=== PATIENT | female | born 1980 | race Hispanic/Latino ===

== ENCOUNTER 2019-12-23 07:23 | Day surgery (SDC) | payer OTHER ==
[2019-12-19 09:54] LABS: BASOPHILS % (AUTO) 0.7 % (0.0-5.0); EOSINOPHILS % (AUTO) 1.3 % (0.0-8.0); HEMATOCRIT 40.9 % (36-48); LYMPHOCYTES % (AUTO) 29.4 % (21.0-51.0); MEAN CORPUSCULAR HEMOGLOBIN 31.2 pg (27.0-33.0); MEAN CORPUSCULAR HGB CONC 33.7 g/dL (32.0-36.0); MEAN CORPUSCULAR VOLUME 92.5 fL (79-99); MONOCYTES % (AUTO) 8.6 % (3.0-13.0); NEUTROPHILS % (AUTO) 59.4 % (40.0-77.0); PLATELET COUNT (AUTO) 240 K/uL (130-400); RED BLOOD CELL COUNT(AUTO) 4.42 MIL/uL (4.00-5.50); RED CELL DISTRIBUTION WIDTH 12.7 % (11.0-15.5); WHITE BLOOD COUNT (AUTO) 5.5 K/uL (4.8-10.8)
[2019-12-19 10:20] LABS: INR 1.28 (0.85-1.15); PARTIAL THROMBOPLASTIN TIME 36.1 SEC (26.3-35.5); PROTHROMBIN TIME 13.7 SEC (9.6-11.6)
[2019-12-19 10:26] LABS: POTASSIUM 4.2 mmol/L (3.5-5.1)
[2019-12-22 09:25] VITALS: BP 126/71
[~2019-12-23] VITALS: Ht 160 cm; Wt 104.0 kg
[2019-12-23] VITALS (9 sets, daily range): BP systolic 102–122; BP diastolic 56–73
[~2019-12-23 07:23] MED LIST: DRON400T2 PO; LO ESTRIN PO; LORA0.5T83 PO; METO100T14 PO; RIVA20TA PO; VERA240T14 PO
[2019-12-23] MEDS ORDERED: SODIUM CHLORIDE 0.9% 1000ML 1,000 ML IV ONE (07:41)
[2019-12-23] MEDS ORDERED: SUCCINYLCHOLINE 200MG/10ML SYR ONE (09:15)
[2019-12-23] MEDS ORDERED: PROPOFOL 10 MG/ML 20ML VIAL IV ONE (09:15)
--- NOTE | 2019-12-23 10:00 | NUR ---
cardioversion cardioversions with anesthesia done by dr. correa /farhat vazquez presales consultant. internal shock delivered at 36 joules at 0922- pt velvet well with no adverse reactions. pt converted ,vs stable.
--- NOTE | 2019-12-23 10:10 | NUR ---
dc pt dc home via [place],no distress noted. pt denied any pain or discomforts. pt accompanied by her mother .
== END 2019-12-23 10:10 | disposition home or self-care (01) ==
LOC: DAH 07:23
PROVIDERS: ATTEND Internal Medicine Cardiovascular Disease
DX: I48.4 Atypical atrial flutter (principal); Z11.59 Encounter for screening for other viral diseases; E66.9 Obesity, unspecified; Z79.899 Other long term (current) drug therapy; Z90.10 Acquired absence of unspecified breast and nipple; Z95.810 Presence of automatic (implantable) cardiac defibrillator; I44.7 Left bundle-branch block, unspecified; Z79.01 Long term (current) use of anticoagulants
CPT/HCPCS: 36415; 80048; 84703; 85025; 85610; 85730; 92960; 93005; A4215; A4216; A4221; A4222; A4223 ×3; A4606; A4663; J0330; J2704; J7030 ×2; U0003; 99156

== ENCOUNTER 2020-08-23 06:04 | Day surgery (SDC) | payer OTHER ==
[2020-08-19 13:17] LABS: BASOPHILS % (AUTO) 0.7 % (0.0-5.0); EOSINOPHILS % (AUTO) 0.7 % (0.0-8.0); HEMATOCRIT 41.1 % (36-48); LYMPHOCYTES % (AUTO) 28.8 % (21.0-51.0); MEAN CORPUSCULAR HEMOGLOBIN 31.6 pg (27.0-33.0); MEAN CORPUSCULAR HGB CONC 33.3 g/dL (32.0-36.0); MEAN CORPUSCULAR VOLUME 94.7 fL (79-99); MONOCYTES % (AUTO) 9.4 % (3.0-13.0); PLATELET COUNT (AUTO) 220 K/uL (130-400); RED BLOOD CELL COUNT(AUTO) 4.34 MIL/uL (4.00-5.50); RED CELL DISTRIBUTION WIDTH 11.8 % (11.0-15.5); WHITE BLOOD COUNT (AUTO) 6.7 K/uL (4.8-10.8)
[2020-08-19 13:25] LABS: CREATININE 1.1 mg/dL (0.5-1.5); POTASSIUM 4.2 mmol/L (3.5-5.1)
[2020-08-19 13:27] LABS: INR 1.32 (0.85-1.15)
[2020-08-19 13:29] LABS: PARTIAL THROMBOPLASTIN TIME 35.6 SEC (26.3-35.5)
[2020-08-20 12:50] VITALS: BP 127/72
[2020-08-23] VITALS (9 sets, daily range): BP systolic 102–107; BP diastolic 50–67
[~2020-08-23] VITALS: Ht 157.5 cm; Wt 105.2 kg
[~2020-08-23 06:04] MED LIST changes: +CEFAZOLIN SODIUM 1 GM VIAL IVP SCH; -DRON400T2 PO; +DRON400T7 PO; -LORA0.5T83 PO; -VERA240T14 PO; +VERA240T95 PO
[2020-08-23] MEDS ORDERED: 0.9%NACL 1000ML 1,000 ML IV ONE (06:44)
[2020-08-23] MEDS ORDERED: CEFAZOLIN SODIUM 1 GM VIAL ONE (07:42)
[2020-08-23] MEDS ORDERED: LIDOCAINE HCL 1% MDV 50ML VIAL ONE (07:42)
[2020-08-23] MEDS ORDERED: BUPIVACAINE/PF 0.25% 30ML VIAL IJ ONE (07:42)
[2020-08-23] MEDS ORDERED: MIDAZOLAM HCL 1 MG/ML 2ML VIAL ONE ×2 (07:56→10:18)
[2020-08-23] MEDS ORDERED: FENTANYL CITRATE PF 50 MCG/1 ML 2ML VIAL ONE (07:57)
[2020-08-23] MEDS ORDERED: PROPOFOL 10 MG/ML 20ML VIAL IV ONE (07:57)
[2020-08-23] MEDS ORDERED: ROCURONIUM 10MG/1ML SYR 10 MG/ML ML ONE (07:59)
[2020-08-23] MEDS ORDERED: SUCCINYLCHOLINE 200MG/10ML SYR ONE (07:59)
[2020-08-23] MEDS ORDERED: PHENYLEPHRINE HCL 10 MG/ML 1ML VIAL IV ONE (07:59)
[2020-08-23] MEDS ORDERED: ACETAMINOPHEN WITH CODEINE 1 TAB TAB PO PRN (09:45)
[2020-08-23] MEDS ORDERED: ACET1TAB25 PO (09:49)
== END 2020-08-23 13:10 | disposition home or self-care (01) ==
LOC: DAH 06:04
PROVIDERS: ATTEND Internal Medicine Cardiovascular Disease
DX: Z45.02 Encounter for adjustment and management of automatic implantable cardiac defibrillator (principal); Z20.822 Contact with and (suspected) exposure to COVID-19; I42.2 Other hypertrophic cardiomyopathy; I48.91 Unspecified atrial fibrillation; I25.10 Atherosclerotic heart disease of native coronary artery without angina pectoris; Z98.890 Other specified postprocedural states; Z79.01 Long term (current) use of anticoagulants; Z79.899 Other long term (current) drug therapy
CPT/HCPCS: 33263; 36415; 80048; 81025; 85025; 85610; 85730; 93005; A4215; A4216; A4221; A4222; A4223 ×3; A4606; A4663; C1721; C9803; J0330; J0690; J2250 ×2; J2370; J2704; J3010; J3490 ×2; J7030; U0003; C1785

== ENCOUNTER → 2022-01-26 | Outpatient (CLI) | payer BC ==
[~2022-01-26] MED LIST changes: +ACET-2079 PO; -CEFAZOLIN SODIUM 1 GM VIAL IVP SCH
== END | disposition home or self-care (01) ==
LOC: SHCH 14:09
PROVIDERS: ATTEND Internal Medicine Cardiovascular Disease
DX: R60.9 Edema, unspecified (principal)
CPT/HCPCS: 93970

== ENCOUNTER 2023-05-01 05:58 | Observation (INO) | payer OTHER ==
[2023-04-30 09:24] VITALS: BP 126/77; PULSE 78; RESP 16
[2023-04-30 09:30] LABS: BASOPHILS # (AUTO) 0.05 K/uL (0.00-0.20); BASOPHILS % (AUTO) 0.9 % (0.0-5.0); EOSINOPHILS # (AUTO) 0.07 K/uL (0.00-0.70); EOSINOPHILS % (AUTO) 1.3 % (0.0-8.0); HEMATOCRIT 44.1 % (36-48); IMMATURE GRANULOCYTE ABSOLUTE 0.03 K/uL (0-1); LYMPHOCYTES # (AUTO) 1.5 K/uL (1.0-4.8); LYMPHOCYTES % (AUTO) 27.9 % (21.0-51.0); MEAN CORPUSCULAR HEMOGLOBIN 28.8 pg (27.0-33.0); MEAN CORPUSCULAR VOLUME 90.2 fL (79-99); MONOCYTES # (AUTO) 0.5 K/uL (0.1-1.0); MONOCYTES % (AUTO) 8.9 % (3.0-13.0); NEUTROPHILS # (AUTO) 3.2 K/uL (1.8-7.7); NEUTROPHILS % (AUTO) 60.4 % (40.0-77.0); PLATELET COUNT (AUTO) 241 K/uL (130-400); RED BLOOD CELL COUNT(AUTO) 4.89 MIL/uL (4.00-5.50); RED CELL DISTRIBUTION WIDTH 14.4 % (11.0-15.5); WHITE BLOOD COUNT (AUTO) 5.3 K/uL (4.8-10.8)
[2023-04-30 09:35] LABS: POTASSIUM 4.3 mmol/L (3.5-5.1)
[2023-04-30 09:54] LABS: INR 1.12 (0.85-1.15); PROTHROMBIN TIME 12.9 SEC (9.6-11.6)
[2023-04-30 09:55] LABS: PARTIAL THROMBOPLASTIN TIME 34.3 SEC (26.3-35.5)
[2023-05-01] VITALS (24 sets, daily range): BP systolic 100–120; BP diastolic 52–71; PULSE 56–61; RESP 12–20; O2SAT 97
[~2023-05-01] VITALS: Ht 154.9 cm; Wt 109.4 kg
[~2023-05-01 05:58] MED LIST changes: -ACET-2079 PO; +ACETAMINOPHEN 325 MG TAB PO PRN; +AMIO200T68 PO; +CLONIDINE HCL 0.1 MG TABLET PO PRN; -DRON400T7 PO; +DROS4TAB PO; +HYDRALAZINE 25MG TABLET PO PRN; -LO ESTRIN PO; +ZOLPIDEM TARTRATE 5 MG TAB PO PRN
[2023-05-01] MEDS ORDERED: 0.9%NACL 1000ML 1,000 ML IV ONE (06:16)
[2023-05-01] MEDS ORDERED: SUCCINYLCHOLINE CHLORIDE 20 MG/ML 10 ML VIAL ONE (06:37)
[2023-05-01] MEDS ORDERED: LIDOCAINE PF 100MG/5ML (2%) SYRINGE 5ML ONE ×2 (06:37→12:25)
[2023-05-01] MEDS ORDERED: DEXAMETHASONE SOD PHOSPHATE 10MG/ML 1ML VIAL ONE (06:38)
[2023-05-01] MEDS ORDERED: MIDAZOLAM HCL 1 MG/ML 2ML VIAL ONE (06:38)
[2023-05-01] MEDS ORDERED: GLYCOPYRROLATE 1 MG/5 ML SYRINGE ONE (06:38)
[2023-05-01] MEDS ORDERED: PROPOFOL 10 MG/ML 20ML VIAL IV ONE ×2 (06:38→06:39)
[2023-05-01] MEDS ORDERED: ONDANSETRON 4MG INJ ONE ×2 (06:39→06:40)
[2023-05-01] MEDS ORDERED: ROCURONIUM 10MG/1ML SYR 10 MG/ML ML ONE ×2 (06:39→06:40)
[2023-05-01] MEDS ORDERED: FENTANYL CITRATE PF 50 MCG/1 ML 2ML VIAL ONE ×2 (06:39→06:48)
[2023-05-01] MEDS ORDERED: NEOSTIGMINE 5MG/5ML SYR IV ONE (06:39)
[2023-05-01] MEDS ORDERED: ATROPINE 1MG SYG IVP ONE (06:40)
[2023-05-01] MEDS ORDERED: PHENYLEPHRINE HCL 10 MG/ML 1ML VIAL IV ONE (06:43)
[2023-05-01] MEDS ORDERED: FENTANYL CITRATE PF 50 MCG/1 ML 5ML AMP IV ONE (06:49)
[2023-05-01] MEDS ORDERED: LIDOCAINE HCL 1% MDV 50ML VIAL ONE (07:18)
[2023-05-01] MEDS ORDERED: HEPARIN 10,000 UNIT/10ML (1,000 UNIT/ML) VIAL ONE ×2 (07:22→08:24)
[2023-05-01] MEDS ORDERED: PROTAMINE SULFATE 10 MG/ML 25ML VIAL IV ONE (11:14)
[2023-05-01] MEDS ORDERED: SCOPOLAMINE HYDROBROMIDE 1 EACH ADH..PATCH TD ONE (12:22)
[2023-05-01] MEDS ORDERED: PANTOPRAZOLE 40 MG TAB DR PO ONE (14:00)
[2023-05-01] MEDS ORDERED: RIVAROXABAN 20 MG TABLET PO SCH (18:00)
[2023-05-01] MEDS ORDERED: METOPROLOL TARTRATE 50 MG TAB PO SCH (21:00)
[2023-05-01] MEDS ORDERED: VERAPAMIL HCL 240 MG SRTAB PO SCH (21:00)
[2023-05-01] MEDS ORDERED: NON-FORMULARY MEDICATION 1 EACH (Metoprolol Tartrate 100 MG) PO SCH (21:00)
[2023-05-02] MEDS ORDERED: PANTOPRAZOLE 40 MG TAB DR PO SCH (09:00)
== END 2023-05-01 19:05 | disposition home or self-care (01) ==
LOC: DAH 05:58 → DAHIP 05:59 → 2AH 13:30
PROVIDERS: ADMIT Internal Medicine Cardiovascular Disease; ATTEND Internal Medicine Cardiovascular Disease
DX: I48.0 Paroxysmal atrial fibrillation (principal); I48.4 Atypical atrial flutter; Z79.899 Other long term (current) drug therapy; Z98.890 Other specified postprocedural states
CPT/HCPCS: 80048; 84703; 85025; 85610; 85730; 36415; 93005; 93655; 93656; 93657; 85347 ×7; 93306; A4344; C1894 ×4; C1732 ×2; C1893; A4215 ×2; C1731; A4649 ×2; C1766; G0378 ×6; J3010 ×3; J3490 ×2; J1100; J2710; J0330; J7030; J2720; J2001 ×2; J0461; J1644 ×4; J2250; J2704 ×2; J2405 ×2; J2371; A4223 ×3; A4222; A4221; A4663; A4216; A4606

== ENCOUNTER → 2024-08-18 | Outpatient (CLI) | payer OTHER ==
[~2024-08-18] MED LIST changes: -ACETAMINOPHEN 325 MG TAB PO PRN; -AMIO200T68 PO; -CLONIDINE HCL 0.1 MG TABLET PO PRN; -HYDRALAZINE 25MG TABLET PO PRN; +IOHEXOL 350 MG/ML 100ML INFUS..BTL IV ONE; +IOHEXOL-350 50ML VIAL IV ONE; -ZOLPIDEM TARTRATE 5 MG TAB PO PRN; +metoPROLOL tartRATE 1 MG/ML 5ML VIAL IV ONE
== END | disposition home or self-care (01) ==
LOC: RAH 09:27
PROVIDERS: ATTEND Internal Medicine Cardiovascular Disease
DX: I20.0 Unstable angina (principal); R07.9 Chest pain, unspecified; R06.09 Other forms of dyspnea; Z53.9 Procedure and treatment not carried out, unspecified reason
CPT/HCPCS: J3490; Q9967

== ENCOUNTER 2025-05-05 06:09 | Day surgery (SDC) | payer OTHER ==
[2025-05-04 09:39] LABS: IMMATURE GRANULOCYTE ABSOLUTE 0.03 K/uL (0-1); NUCLEATED RED BLOOD CELLS 0.0 % (0.0-0.19); PLATELET COUNT (AUTO) 223 K/uL (130-400); RED BLOOD CELL COUNT(AUTO) 4.69 MIL/uL (4.00-5.50); RED CELL DISTRIBUTION WIDTH 11.9 % (11.0-15.5); WHITE BLOOD COUNT (AUTO) 6.6 K/uL (4.8-10.8)
[2025-05-04 09:42] VITALS: BP 125/87; PULSE 80; RESP 17; TEMP 97.8
[2025-05-04 09:50] LABS: CREATININE 0.9 mg/dL (0.5-1.0); GLOMERULAR FILTR. RATE CALC 81.0 mL/min (>90); GLUCOSE,RANDOM 105.0 mg/dL (70-105); SODIUM SERUM 137.0 mmol/L (136-145); UREA NITROGEN, BLOOD 9.0 mg/dL (7-18)
[2025-05-04 10:09] LABS: INR 1.25 (0.85-1.15)
--- NOTE | 2025-05-04 10:45 | EKG ---
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1980 Requested By: ZACKERY SIEGEL Order Number: [id number] Reading MD: Kurtis Meredith Measurements Intervals [place] Rate: 80 P: 0 MN: 170 QRS: -74 QRSD: 135 T: 120 QT: 446 QTc: 516 Interpretive Statements Sinus rhythm vs atrial flutter Nonspecific IVCD with LAD LVH with secondary repolarization abnormality ST elevation secondary to IVCD Compared to ECG 01/24/2025 11:19:00 Intraventricular conduction delay now present Left ventricular hypertrophy now present Early repolarization now present Electronically Signed On 05-05-2025 21:10:27 [employer] HR DEVELOPER by Kurtis eMredith Please click the below link to view image of tracing.
[2025-05-05] VITALS (18 sets, daily range): BP systolic 101–130; BP diastolic 47–79; PULSE 58–80; RESP 12–20; TEMP 97.3–97.6
[~2025-05-05] VITALS: Ht 157.5 cm; Wt 111.0 kg
[~2025-05-05 06:09] MED LIST changes: -DROS4TAB PO; -IOHEXOL 350 MG/ML 100ML INFUS..BTL IV ONE; -IOHEXOL-350 50ML VIAL IV ONE; +METO-409 PO; -METO100T14 PO; -VERA240T95 PO; -metoPROLOL tartRATE 1 MG/ML 5ML VIAL IV ONE
[2025-05-05] MEDS ORDERED: SUCCINYLCHOLINE CHLORIDE 20 MG/ML 10 ML VIAL ONE (06:50)
[2025-05-05] MEDS ORDERED: MIDAZOLAM HCL 1 MG/ML 2ML VIAL ONE (06:50)
[2025-05-05] MEDS ORDERED: LIDOCAINE PF 100MG/5ML (2%) SYRINGE 5ML ONE (06:50)
[2025-05-05 06:51] LABS: CREATININE 1.0 mg/dL (0.5-1.0); GLOMERULAR FILTR. RATE CALC 71.0 mL/min (>90); GLUCOSE,RANDOM 107.0 mg/dL (70-105); SODIUM SERUM 137.0 mmol/L (136-145); UREA NITROGEN, BLOOD 14.0 mg/dL (7-18)
[2025-05-05] MEDS ORDERED: LIDOCAINE HCL 400MG/20ML VIAL ONE (07:49)
[2025-05-05] MEDS ORDERED: SODIUM BICARB 50MEQ 50ML VIAL 50 ML ONE (07:49)
[2025-05-05] MEDS ORDERED: HEParin-NS 1,000 UNIT/500 ML 1,000 ML IV ONE (07:50)
[2025-05-05] MEDS ORDERED: SUGAMMADEX SODIUM 200 MG/2 ML VIAL IV ONE (12:07)
[2025-05-05] MEDS ORDERED: PROTamine SULFate 10 MG/ML 25ML VIAL IV ONE (13:56)
[2025-05-05] MEDS ORDERED: DRON400T7 PO (16:12)
[2025-05-05] MEDS ORDERED: DRONEDARONE HYDROCHLORIDE 400 MG TABLET PO ONE (16:30)
--- NOTE | 2025-05-05 19:37 | EKG ---
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1980 Requested By: ZACKERY SIEGEL Order Number: [id number] Reading MD: Kurtis Meredith Measurements Intervals [place] Rate: 66 P: 0 ND: 244 QRS: -13 QRSD: 136 T: 245 QT: 525 QTc: 552 Interpretive Statements Atrial-paced rhythm Left bundle branch block Compared to ECG 05/04/2025 10:23:34 Left bundle-branch block now present Sinus rhythm no longer present Intraventricular conduction delay no longer present Left ventricular hypertrophy no longer present Early repolarization no longer present ST (T wave) deviation no longer present Electronically Signed On 05-05-2025 21:21:02 WASHING MACHINE ASSEMBLER by Kurtis Meredith Please click the below link to view image of tracing.
== END 2025-05-05 17:29 | disposition home or self-care (01) ==
LOC: DAH 06:09
PROVIDERS: ATTEND Internal Medicine Cardiovascular Disease
DX: I48.19 Other persistent atrial fibrillation (principal); I42.2 Other hypertrophic cardiomyopathy; I48.4 Atypical atrial flutter; I87.2 Venous insufficiency (chronic) (peripheral); Z90.710 Acquired absence of both cervix and uterus; Z82.49 Family history of ischemic heart disease and other diseases of the circulatory system; Z79.899 Other long term (current) drug therapy
CPT/HCPCS: 80048 ×2; 85025; 85610; 85730; 36415 ×2; 93005 ×2; 93655 ×2; 93656; 93657; 85347 ×9; A4223 ×3; C1894 ×3; C1732 ×3; C1760 ×3; A4649 ×2; C1766; J3010 ×2; J3490 ×6; J1100; J0330; J2003; J2720; J1644 ×4; J2250; J2704; J2405; J2371; A4215; A4222; A4221; A4663; A4216; A4606